=== PATIENT | female | born 1990 | race Caucasian/White ===

== ENCOUNTER 2017-11-29 07:19 | Inpatient (IN) | payer OTHER ==
[~2017-11-29] VITALS: Ht 162.6 cm; Wt 99.8 kg
[2017-11-29] MEDS ORDERED: AMPICILLIN SOD500 MG PO (08:37)
[2017-11-29] MEDS ORDERED: PRENATAL TABLE1 EAC1 PO (08:38)
== END 2017-12-02 10:35 | DRG 766 ==
LOC: OB/GYN 07:19 → LDR 07:19 → OB/GYN 11-30 00:12
PROC: 4A1HXCZ Monitoring of Products of Conception, Cardiac Rate, External Approach (ICD-10-PCS; 2017-11-29)
PROC: 10D00Z1 Extraction of Products of Conception, Low, Open Approach (ICD-10-PCS; principal; 2017-11-30)
PROC: 0UT70ZZ Resection of Bilateral Fallopian Tubes, Open Approach (ICD-10-PCS; 2017-11-30)
DX: O62.1 Secondary uterine inertia (principal); Z3A.39 39 weeks gestation of pregnancy; Z37.0 Single live birth; Z30.2 Encounter for sterilization; Z64.1 Problems related to multiparity